=== PATIENT | male | born 1950 | race Caucasian/White ===

== ENCOUNTER 2022-10-30 08:44 | Emergency (ER) | payer OTHER ==
[~2022-10-30] VITALS: Ht 170.2 cm; Wt 63.6 kg
[2022-10-30] MEDS: PERTUSS(ACELL),DIPH,TET VAC/PF 0.5 ML SYRINGE IM. ONE (09:13)
[2022-10-30 11:15] VITALS: BP 142/80
== END 2022-10-30 11:41 | disposition left against medical advice (07) ==
LOC: EMS 08:48
DX: S08.0XXA Avulsion of scalp, initial encounter (principal); F10.20 Alcohol dependence, uncomplicated; F15.10 Other stimulant abuse, uncomplicated; F17.210 Nicotine dependence, cigarettes, uncomplicated; X58.XXXA Exposure to other specified factors, initial encounter; Y93.89 Activity, other specified; Y92.89 Other specified places as the place of occurrence of the external cause; Y99.8 Other external cause status
CPT/HCPCS: 70450; 90471; 90715; 99284